=== PATIENT | female | born 1965 | race Caucasian/White ===

== ENCOUNTER 2018-04-13 08:25 | Observation (INO) | payer BC ==
--- NOTE | 2018-04-05 16:44 | HP ---
AMENDED REPORT NOW INCLUDES COSIGNER DESIGNATION - ESIGNED BEFORE ADJUSTMENTS CC: Dr. Arthur Aguilera; BRE Freitas in [place] * PREOPERATIVE HISTORY AND PHYSICAL: DATE OF PREOPERATIVE HISTORY AND PHYSICAL EXAMINATION: 04/04/18 This patient is scheduled for same-day surgery admission by Dr. Schultz on Monday , 04/13/18. ATTENDING SURGEON: Jazzy Schultz MD * (dictated by Giselle De NP). CHIEF COMPLAINT: Hyperparathyroidism. HISTORY OF PRESENT ILLNESS: The patient is a 53-year-old female recently evaluated by Dr. Schultz. The patient reports that in October, she began to feel very ill, complaining of neck pain and fatigue. In the process of the workup for these symptoms, she had a dose of antibiotic and subsequently developed hematoma in the anterior neck. Subsequent CAT scan identified mononucleosis and then later there was a question of mass and she had a cancer workup. In the process of the workup, she was found to have hypercalcemia. Parathyroid hormone was checked and she was found to be hyperparathyroid. Since then she has had localizing studies including nuclear medicine test and ultrasound that have identified left lower pole parathyroid adenoma. She was therefore referred by Dr. Aguilera for consideration of surgery. She notes that fatigue is an ongoing symptom as well as mood swings, constipation, memory problems and she has also been diagnosed with osteopenia on a DEXA scan. She denies history of radiation to the head and neck area. Her brother also had hyperparathyroidism and had surgery many years ago. She reports that there are no other known endocrinopathies in the family. Calcium level in January [address] Schultz examined the patient and discussed the findings with her and Dr. Schultz has recommended parathyroidectomy as the same day surgery procedure. Dr. Schultz discussed the nature of the surgical procedure, the rationale for the procedure, the relevant risks and benefits and today, I reviewed the typical postoperative care and recovery. The patient has had chance to ask questions and stated that she understands the information and is satisfied with the answers given to her questions. She will sign surgical consent on the day of surgery. PAST MEDICAL HISTORY: Significant for chronic neck pain and she has followed in the [facility] Clinic at [facility]; mononucleosis. PAST SURGICAL HISTORY: 1. Laparoscopic cholecystectomy [address] Mcdaniels. 2. Open appendectomy in 1986. MEDICATIONS: 1. Hydrocodone/acetaminophen 7.5/325 mg 1 tablet every 6 hours p.r.n. 2. Benadryl Allergy 25 mg p.o. p.r.n. ALLERGIES: PERCOCET and TRAMADOL have caused itching, but she can tolerate hydrocodone. FAMILY HISTORY: Brother had a parathyroidectomy; father at age 86 with the history of unspecified cancer, heart disease, and deep vein thrombosis. Mother alive and well at age 82. SOCIAL HISTORY: She is ; she is a former smoker who quit 25 years ago; she denies the use of alcohol or other substances. REVIEW OF SYSTEMS: Constitutional: No fever or chills, but she reports ongoing fatigue; her weight has been stable. Endocrine: As described in history of present illness. Respiratory: No dyspnea on exertion or chronic cough. Cardiovascular: No anginal chest pain or palpitations. Gastrointestinal : She reports constipation. No blood in the stool. No nausea or vomiting. Genitourinary: No dysuria. Musculoskeletal: Chronic neck pain. Neurologic: Mild memory problems. No blurred vision. No areas of focal weakness or numbness. General: No previous anesthesia complications. No history of deep vein thrombosis or pulmonary embolism. No history of blood transfusions. PHYSICAL EXAMINATION GENERAL SURVEY: The patient is a 53-year-old female, well developed, well nourished, in no acute distress. VITAL SIGNS: Height 64 inches, weight 170 pounds. Body mass index 29. Blood pressure 118/76, pulse 74 and regular, respiratory rate 18, temperature 98 tympanic. SKIN: Warm, dry, and intact. HEENT: Benign. NECK: Supple. No obvious swelling. The hematoma previously described is completely resolved. Palpation reveals no obvious masses in the region of the thyroid gland. BACK: No CVA tenderness. LUNGS: Breath sounds bilaterally clear and equal. HEART: Regular rate and rhythm. No murmurs or rubs appreciated. ABDOMEN: Active bowel sounds. Well healed surgical scars. Soft, nontender and nondistended. No obvious masses, organomegaly or evidence of ventral hernias. PELVIC: Deferred. RECTAL: Deferred. EXTREMITIES: Warmth without edema or skin ulceration. NEUROLOGIC: Alert and oriented x3. Steady gait. IMPRESSION: Hyperparathyroidism. PLAN: Same-day surgery admission to Dr. Schultz's service on 04/13/18 for parathyroidectomy. LE[place], STREET COMMISSIONER [id number]/[facility] #: [id number] [facility]
[~2018-04-13 08:25] MED LIST: Buffered Lidocaine 0.9% SYRIN* 5 ML/SYR SYRINGE INTRADERM ONE
[2018-04-13] MEDS ORDERED: fentaNYL* 50 MCG/ML 2 ML VIAL (100 MCG VIAL) ONE ×5 (09:25→14:44)
[2018-04-13] MEDS ORDERED: Midazolam* 1 MG/ML 2 ML VIAL (2 MG) ONE (09:25)
[2018-04-13] MEDS ORDERED: ceFAZolin 2 GM PREMIX (*) 2 GM/50 ML BAG IVPB ONE (09:38)
[2018-04-13] MEDS ORDERED: Heparin VIAL(*) 5000 UNITS/ML VIAL (FIVE THOUSAND) ONE (09:38)
[2018-04-13] MEDS ORDERED: Ropivacaine (OR use only) 2 MG/ML 10 ML ONE (10:29)
[2018-04-13] MEDS ORDERED: Rocuronium* 10 MG/ML VIAL ONE ×2 (10:37→11:09)
[2018-04-13] MEDS ORDERED: Propofol* 10 MG/ML 20 ML BTL IV PUSH ONE (11:18)
[2018-04-13] MEDS ORDERED: Famotidine IV* 10 MG/ML 2 ML (20 mg) ONE (11:18)
[2018-04-13] MEDS ORDERED: Dexamethasone IV* 4 MG/ML 1 ML (4 MG) ONE (11:18)
[2018-04-13] MEDS ORDERED: Ondansetron INJ* 2 MG/ML VIAL ONE (11:18)
[2018-04-13] MEDS ORDERED: PROCHLORPERAZINE INJ 5 MG/ML 2 ML VIAL IV PRN (12:13)
[2018-04-13] MEDS ORDERED: Acetaminophen TAB* 325 MG PO PRN (12:13)
[2018-04-13] MEDS ORDERED: Naloxone* 0.4 MG/ML 1 ML VIAL IV PRN (12:13)
[2018-04-13] MEDS ORDERED: HYDROcodone/ACETAMIN 5-325 MG* 1 TAB PO PRN (12:13)
[2018-04-13] MEDS ORDERED: Ondansetron INJ* 2 MG/ML VIAL IV PRN ×2 (12:13→13:54)
[2018-04-13] MEDS ORDERED: DiMENhydriNATE IV* 50 MG/ML VIAL IV PUSH PRN (12:13)
--- NOTE | 2018-04-13 13:50 | OP ---
<Parviz Estrada - Last Filed: 04/13/18 13:44> Operative Report - Blank - Operative Report Date of Operation: 04/13/18 Note: Brief Operative Note Preoperative Dx: Left lower parathyroid adenoma. Postoperative Dx: Same plus recurrent laryngeal nerve injury. Procedure: Left lower parathyroidectomy plus left recurrent laryngeal nerve repair. Anesthesia: GET. Surgeon: Antoine. Assist: BRE Yung. EBL: Less than 50 mL. Fluids: 700 LR. Specimen: Left lower parathyroid gland. Findings: Dictated. <Sánchez Yung - Last Filed: 04/13/18 17:28> Operative Report - Blank - Operative Report Note: Preoperative Dx: Hyperparathyroidism Postoperative Dx: same, plus Left recurrent laryngeal nerve injury
[2018-04-13] MEDS ORDERED: Acetaminophen ADULT LIQ* 650 MG/20.3 ML UDC PO PRN (13:51)
[2018-04-13] MEDS ORDERED: HYDROcodone/ACET. 7.5/325 LIQ* 15 ML UDC PO PRN (13:51)
[2018-04-13] MEDS: fentaNYL* 50 MCG/ML 2 ML VIAL (100 MCG VIAL) IV PRN ×3 (14:02→14:46)
[2018-04-13] MEDS ORDERED: HYDROcodone/ACET. 7.5/325 LIQ* 15 ML UDC ONE (14:33)
[2018-04-13] MEDS: HYDROcodone/ACET. 7.5/325 LIQ* 15 ML UDC PO PRN ×3 (14:36→22:39)
[2018-04-13] MEDS: Morphine INJ* 2 MG/ML 1 ML SYRINGE (TWO MG - NEW SYRINGE VERSION) IV PRN ×4 (16:40→23:19)
--- NOTE | 2018-04-13 22:38 | OP ---
CC: [facility]; Dr. Arthur Aguilera; Timothy DÍAZ, Edmundo Reeder OPERATIVE REPORT: DATE OF OPERATION: 04/13/18 DATE OF : 65 SURGEON: Jazzy Schultz MD GOLD NIB GRINDER: BRE Carlos PRE-OP DIAGNOSIS: Hyperparathyroidism. POST-OP DIAGNOSIS: Hyperparathyroidism. OPERATIVE PROCEDURE: Parathyroidectomy and repair of incidental nerve injury. INDICATIONS: Ms. Schofield is a 53-year-old woman, who was found to have hyperparathyroidism and prepa red for surgery. DESCRIPTION OF PROCEDURE: On the morning of surgery, she was brought to the operating room, placed o n the OR table in the supine position, and given general anesthesia. The neck was prepped and draped in the usual sterile fashion. After infiltrating with local anesthetic, an incision was made along the line that had been marked preoperatively. Subcutaneous tissue was then divided with electrocaute ry through the platysma muscle. Flaps were developed superiorly to the thyroid notch and inferiorly to the sternal notch. The strap muscles were then divided along the midline and retracted laterally over the left lobe of the thyroid gland where it was recognized that preoperative imaging had identif ied an abnormal parathyroid. A search was made for an abnormal parathyroid in the region of the lowe r pole where it had been identified and there was an abnormal appearing parathyroid gland that did no t quite appear large enough to qualify for the one that had been identified by imaging, so search was made for another one. What eventually turned out to be convolution of the left lobe of the thyroid gland was thought initially to be parathyroid and so some considerable dissection was carried out in this area. It was recognized that there was a fair amount of scar tissue around the thyroid or parat hyroid presumably due to previous hematoma in the area and this did effect the anatomy and appearance of the tissue in the area. Once it was recognized that this extra tissue was indeed thyroid tissue and it was retracted medially, a search was made for the recurrent laryngeal nerve. In the course of searching for the recurrent laryngeal nerve, it was recognized that the nerve had been divided, the 2 ends were visible and so the decision was made to repair the nerve. In the meantime, the original mass that appeared to be parathyroid had been taken out by primarily blunt dissection and handed off with another rapid PTH being sent after 10 minutes. The divided nerve was reapproximated using 6-0 P rolene stitches to attach the nerve sheath to the nerve sheath tissue in 3 points around the nerve an d then a piece of AxoGuard porcine nerve connector was placed around the repair to reinforce it. The n, a piece of Surgicel was placed in the bed of the parathyroid and closure was accomplished. This wa s done with 3-0 Vicryl to reapproximate the strap muscles, 4-0 Vicryl was used to reapproximate the p latysma muscle, and the skin was closed with 4-0 Prolene in a subcuticular fashion. Steri-Strips and a dry fluffy dressing were applied. All sponge and instrument counts were correct. The patient robbi rated the procedure well and was transferred to Recovery in a stable condition. [id number]/[facility] #: [id number]
[2018-04-14] MEDS: Morphine INJ* 2 MG/ML 1 ML SYRINGE (TWO MG - NEW SYRINGE VERSION) IV PRN (02:17)
[2018-04-14] MEDS: HYDROcodone/ACET. 7.5/325 LIQ* 15 ML UDC PO PRN ×2 (03:06→07:16)
[2018-04-14] MEDS ORDERED: Ibuprofen ADULT LIQ* 600 MG/30 ML UDC PO PRN (07:56)
--- NOTE | 2018-04-14 08:00 | PN ---
Progress Note - Progress Note Date of Service: 04/14/18 Note: Surgery Ms. Schofield reports she had a "miserable" night. She was uncomfortable with neck and incisional pain. She denies numbness or tingling around the lips or hand spasms. She has been trying to rest her voice. Vital Signs 04/13/18 04/13/18 04/13/18 09:22 13:39 13:40 Temperature 95.5 F 97.7 F Pulse Rate 61 71 77 Respiratory 16 16 Rate Blood Pressure 147/82 132/74 (mmHg) O2 Sat by Pulse 98 96 97 Oximetry 04/13/18 04/13/18 04/13/18 13:45 13:50 13:55 Temperature Pulse Rate 71 67 70 Respiratory 18 18 16 Rate Blood Pressure 126/68 108/72 127/82 (mmHg) O2 Sat by Pulse 97 96 96 Oximetry 04/13/18 04/13/18 04/13/18 13:56 14:00 14:02 Temperature Pulse Rate 69 Respiratory 16 16 17 Rate Blood Pressure 125/68 (mmHg) O2 Sat by Pulse 97 Oximetry 04/13/18 04/13/18 04/13/18 14:15 14:20 14:30 Temperature 98.4 F Pulse Rate 71 69 Respiratory 19 14 15 Rate Blood Pressure 130/71 117/71 (mmHg) O2 Sat by Pulse 97 98 Oximetry 04/13/18 04/13/18 04/13/18 14:36 14:45 14:46 Temperature Pulse Rate 74 Respiratory 16 21 17 Rate Blood Pressure 127/70 (mmHg) O2 Sat by Pulse 93 Oximetry 04/13/18 04/13/18 04/13/18 16:00 16:13 16:14 Temperature 97.3 F Pulse Rate 69 Respiratory 16 12 Rate Blood Pressure 124/74 (mmHg) O2 Sat by Pulse 99 99 Oximetry 04/13/18 04/13/18 04/13/18 16:32 16:40 17:20 Temperature 98.4 F 96.8 F Pulse Rate 70 65 Respiratory 16 16 14 Rate Blood Pressure 123/69 140/76 (mmHg) O2 Sat by Pulse 99 100 Oximetry 04/13/18 04/13/18 04/13/18 18:41 19:01 19:36 Temperature 97.7 F Pulse Rate 70 Respiratory 18 18 16 Rate Blood Pressure 142/74 (mmHg) O2 Sat by Pulse 99 Oximetry 04/13/18 04/13/18 04/13/18 19:38 20:00 20:33 Temperature 97.7 F Pulse Rate 70 Respiratory 16 17 17 Rate Blood Pressure 142/74 (mmHg) O2 Sat by Pulse 99 Oximetry 04/13/18 04/13/18 04/13/18 21:12 21:15 21:23 Temperature 97.1 F Pulse Rate 65 Respiratory 16 16 18 Rate Blood Pressure 134/76 (mmHg) O2 Sat by Pulse 96 Oximetry 04/13/18 04/13/18 04/13/18 22:17 22:39 23:19 Temperature Pulse Rate Respiratory 16 16 16 Rate Blood Pressure (mmHg) O2 Sat by Pulse Oximetry 04/13/18 04/14/18 04/14/18 23:29 00:25 00:55 Temperature 97.1 F Pulse Rate 65 Respiratory 16 16 16 Rate Blood Pressure 136/72 (mmHg) O2 Sat by Pulse 99 Oximetry 04/14/18 04/14/18 04/14/18 02:17 03:06 03:30 Temperature Pulse Rate Respiratory 17 16 16 Rate Blood Pressure (mmHg) O2 Sat by Pulse Oximetry 04/14/18 04/14/18 04/14/18 03:45 05:16 07:16 Temperature 97.4 F Pulse Rate 65 Respiratory 16 16 16 Rate Blood Pressure 129/72 (mmHg) O2 Sat by Pulse 96 Oximetry incision: clean and dry neg. [place] sign Intake & Output 04/13/18 04/14/18 04/14/18 22:59 06:59 14:59 Intake Total 520 60 Balance 520 60 Intake: Oral 520 60 Other: Estimated Void Large Medium # Bowel Movements 0 # Voids 3 1 Laboratory Results - last 24 hr 04/13/18 04/13/18 09:16 12:07 PTH Rapid 3.2 L PTH Intact 7.9 Calcium (PTH Intact) 10.4 H A/P: POD#1 s/p parathyroidectomy; pt. and family aware of nerve injury and repair. They are also aware of PTH responding to surgery. She is stable to go home. CLFoster
[2018-04-14 09:41] VITALS: BP 126/72
--- NOTE | 2018-04-14 15:29 | DS ---
CC: [facility]; Dr. Arthur Aguilera; Dr. Timothy Crowell * DISCHARGE SUMMARY: DATE OF ADMISSION: 04/13/18 DATE OF DISCHARGE: 04/14/18 ADMISSION DIAGNOSIS: Hyperparathyroidism. DISCHARGE DIAGNOSIS: Hyperparathyroidism. PROCEDURE DURING HOSPITALIZATION: Parathyroidectomy and repair of recurrent laryngeal nerve injury. Please see admission history and physical for details of findings at the time of admission. She underwent surgery, which is notable for the incidental laceration to the recurrent laryngeal nerve requiring repair and postoperatively , was admitted for observation due to this injury she postoperatively had neck pain, but no complications beyond the surgical one. She, the next morning, was considered stable for discharge and was discharged to home with instructions to followup as an outpatient. [id number]/[facility] #: [id number] JERE
== END 2018-04-14 11:03 | disposition home or self-care (01) ==
LOC: OR 08:25 → SSU 13:46
PROVIDERS: ADMIT Surgery; ATTEND Surgery
DX: E21.3 Hyperparathyroidism, unspecified (principal)
CPT/HCPCS: 36415; 83970; A9270-GY; G0378; J0690; J1100; J1644; J2250; J2270; J2405; J2704; J2795; J3010

== ENCOUNTER 2018-04-19 18:19 | Emergency (ER) | payer OTHER ==
[2018-04-19 19:15] LABS: ABS Basophils 0 10^3/ul (0-0.2); ABS Eosinophils 0.4 10^3/ul (0-0.6); ABS Lymphocytes 2.1 10^3/ul (1.0-4.8); ABS Monocytes 0.5 10^3/ul (0-0.8); ABS Neutrophils 3.5 10^3/ul (1.5-7.7); ABS Nucleated RBC 0 10^3/ul; Eosinophil % 6.7 % (0-6); Hematocrit 39 % (35-47); Hemoglobin 13.2 g/dl (12.0-16.0); Lymphocyte % 32.2 % (25-47); Mean Corpuscular HGB Conc 34 g/dl (31-36); Mean Corpuscular Hemoglobin 31 pg (27-31); Mean Corpuscular Volume 90 fL (80-97); Mean Platelet Volume 8.2 um3 (7.4-10.4); Nucleated Red Blood Cells % 0; Platelet Count 245 10^3/ul (150-450); Red Blood Count 4.29 10^6/ul (4.00-5.40); Red Cell Distribution Width 13 % (10.5-15); White Blood Count 6.7 10^3/ul (3.5-10.8)
--- NOTE | 2018-04-19 19:24 | ED ---
Neck Pain - HPI Summary HPI Summary: 53 y/o female presents to ED c/o constant swelling @ throat s/p parathyroid surgery onset 2 days ago worsening today. Sore throat rated 5/10. Pt's daughter ntoed that there may have been discharge from the incision. Associated sx: raspy voice, ecchymosis around site of surgery, intermittent SOB, rash. Sx 04/13. Sx not aggravated or alleviated by anything. - History of Current Complaint Chief Complaint: EDNeckComplaint Stated Complaint: POSSIBLE INFECTION IN THROAT Hx Obtained From: Patient Onset/Duration Of Injury/Symptoms: Days Timing: Constant Onset/Duration: Started days ago, Still Present Pain Intensity: 5 Pain Scale Used: 0-10 Numeric Aggravating Factors: Nothing Alleviating Factors: Nothing Associated Signs & Symptoms: Positive: Swelling, Bruising - Allergies/Home Medications Allergies/Adverse Reactions: Allergies Allergy/AdvReac Type Severity Reaction Status Date / Time No Known Allergies Allergy Verified 04/19/18 18:27 PMH/Surg Hx/FS Hx/Imm Hx Previously Healthy: No Cardiovascular History: Denies: Hx Pacemaker/ICD GI History: Reports: Hx Gall Bladder Disease, Hx Gastroesophageal Reflux Disease , Hx Irritable Bowel Musculoskeletal History: Reports: Hx Arthritis Denies: Hx Osteoporosis Sensory History: Reports: Hx Contacts or Glasses Denies: Hx Hearing Aid Opthamlomology History: Reports: Hx Contacts or Glasses Neurological History: Reports: Hx Migraine Psychiatric History: Denies: Hx Panic Disorder - Cancer History Hx Chemotherapy: No - Surgical History Surgery Procedure, Year, and Place: Lap cholecystectomy 03/03/14 [facility] [place]PPENDE[place]OM[place] 1986, TUBAL LIGATION 1996 Hx Anesthesia Reactions: No Infectious Disease History: No Infectious Disease History: Denies: Traveled Outside the [place] in Last 30 Days - Social History Alcohol Use: Rare Substance Use Type: Reports: None Smoking Status (MU): Never Smoked Tobacco Amount Used/How Often: social smoker Review of Systems Constitutional: Negative Eyes: Negative Positive: Sore Throat, Other - swelling, discharge, pruritis at site of incision Cardiovascular: Negative Positive: Shortness Of Breath Gastrointestinal: Negative Genitourinary: Negative Musculoskeletal: Negative Positive: Rash, Bruising Neurological: Negative Psychological: Normal All Other Systems Reviewed And Are Negative: No Physical Exam - Summary Physical Exam Summary: Appearance: Alert, conversive, nontoxic appearing Skin: Warm, dry, no mottling, no rashes, no contusions HEENT: EOMI, PERRL, moist mucous membranes. Area of swelling 6 cm in height 8 cm across slightly ttp, slightly erythematous, @ at anterior neck Neck: No masses on the neck, supple Respiratory: Clear to auscultation, breath sounds present, no rales, no rhonchi , no wheezes Cardiovascular: RRR, pulses are symmetrical in both lower and upper extremities Abdomen: Soft, non-tender Bowel Sounds: Present Musculoskeletal: No CVA tenderness, no obvious deformity, moving all extremities in a grossly normal manner Neurological: A&Ox3, CN II-XII Intact, moving all extremities symmetrically Psychiatric: Normal affect and mood Triage Information Reviewed: Yes Vital Signs On Initial Exam: Initial Vitals Temp Pulse Resp BP Pulse Ox 97.2 F 70 18 162/140 100 04/19/18 18:22 04/19/18 18:22 04/19/18 18:22 04/19/18 18:22 04/19/18 18:22 Vital Signs Reviewed: Yes Diagnostics - Vital Signs Vital Signs Temp Pulse Resp BP Pulse Ox 04/19/18 18:22 97.2 F 70 18 162/140 100 - Laboratory Lab Results: Lab Results 04/19/18 Range/Units 19:00 WBC 6.7 (3.5-10.8) 10^3/ul RBC 4.29 (4.00-5.40) 10^6/ul Hgb 13.2 (12.0-16.0) g/dl Hct 39 (35-47) % MCV 90 (80-97) fL MCH 31 (27-31) pg MCHC 34 (31-36) g/dl RDW 13 (10.5-15) % Plt Count 245 (150-450) 10^3/ul MPV 8.2 (7.4-10.4) um3 Neut % (Auto) 52.4 (38-83) % Lymph % (Auto) 32.2 (25-47) % [place] % (Auto) 8.0 H (0-7) % Eos % (Auto) 6.7 H (0-6) % Baso % (Auto) 0.7 (0-2) % Absolute Neuts (auto) 3.5 (1.5-7.7) 10^3/ul Absolute Lymphs (auto) 2.1 (1.0-4.8) 10^3/ul Absolute Monos (auto) 0.5 (0-0.8) 10^3/ul Absolute Eos (auto) 0.4 (0-0.6) 10^3/ul Absolute Basos (auto) 0 (0-0.2) 10^3/ul Absolute Nucleated RBC 0 10^3/ul Nucleated RBC % 0 Result Diagrams: 04/19/18 19:00 04/19/18 19:00 Lab Statement: Any lab studies that have been ordered have been reviewed, and results considered in the medical decision making process. - Radiology CXR Xray Interpretation: No Acute Changes - No PNA Radiology Interpretation Completed By: ED Physician - CT NECK CT CT Interpretation Completed By: Radiologist - Postsurgical hematoma within the surgical bed extending anteriorly into the anterior lower neck. Mild associated adjacent mass effect. Re-Evaluation - Re-Evaluation 1 Re-Evaluation Time: 21:27 Comment: Discuss CT results. Pt has an appointment with her surgeon, Dr. Schultz , tomorrow. Neck Course/Dx - Course Assessment/Plan: 53 y/o female presents to ED c/o constant swelling @ throat s/ p parathyroid surgery onset 2 days ago worsening today. CXR shows no PNA. NECK CT SHOWS Postsurgical hematoma within the surgical bed extending anteriorly into the anterior lower neck. Mild associated adjacent mass effect. Pt has an appt with surgeon Dr. Schultz tomorrow. Pt will be d/c home. - Diagnoses Provider Diagnoses: URI (upper respiratory infection), Hematoma Discharge - Sign-Out/Discharge Documenting (check all that apply): Patient Departure - Discharge Plan Condition: Stable Disposition: HOME Referrals: Timothy Crowell JR, PA [Physician Chemist [employer]] - - Attestation Statements Document Initiated by Scribe: Yes Documenting Scribe: Richmond Ledezma Provider For Whom Scribe is Documenting (Include Credential): Brianna Ruby MD Scribe Attestation: Richmond Urban, scribed for Brianna Ruby MD on 04/19/18 at 2130.
[2018-04-19 19:30] LABS: EGFR Non-African American 98.8 (>60)
--- OUTSIDE RECORDS SUMMARY | 2018-04-19 19:32 | XMS REPORT ---
:1965 External Reference #:[id number] Author Organization [employer] Address [address] [place] [address] Phone [phone] Care Team Providers Name Role Phone Timothy Crowell PA Primary Care Physician Unavailable Payers Type Date Identification Numbers Payment Provider Subscriber Commercial Policy Number: [id number] [facility] Yves Schofield Group Number: [id number] [address] PayID: [id number] [place] [address] Problems Description No Information Family History Date Family Member(s) Problem(s) Comments General Cancer General Diabetes Father Hypertension Father Heart Disease Father Clotting Disorder Mother Thyroid Disease Social History Type Date Description Comments Marital Status Lives With Spouse Occupation Currently Working [employer] ETOH Use Denies alcohol use Smoking Patient is a former smoker Recreational Drug Use Denies Drug Use Daily Caffeine Does Not Consume Caffeine Exercise Type/Frequency Exercises regularly Allergies, Adverse Reactions, Alerts Date Description Reaction Status Severity Comments 03/28/2018 Percocet active itching 03/28/2018 Tramadol active Medications Medication Date Status Form Strength Qnty SIG Indications Ordering Provider Hydrocodone-Mihir 0 Active Tablets 7.5-325mg take one Unknown taminophen 000 capsule/ta blet by mouth every 6 hours as needed for acute pain Benadryl 0 Active Tablets 25mg Unknown Allergy 000 Eszopiclone 0 Hx Tablets 3mg 1 tab by Unknown 000 mouth at bedtime as needed Vital Signs Date Vital Result Comment 03/28/2018 Height 64 inches 5'4" Weight 170.00 lb Heart Rate 74 /min BP Systolic 118 mmHg BP Diastolic 76 mmHg Respiratory Rate 18 /min Body Temperature 98.0 F BMI (Body Mass Index) 29.2 kg/m2 Results Description No Information Procedures Date CPT Code Description Status 02/22/2018 Bone Mineral Density Test Completed 03/03/2014 02046 Laparoscopy Cholecystectomy Completed Plan of Care Future Appointment(s):04/23/2018 1:00 pm - Jazzy Schultz MD at [facility]04/13/2018 8:00 am - Giselle Gary NP at [facility]04/13/2018 8:00 am - Jazzy Schultz MD at [facility]04/04/2018 1:00 pm - Giselle Gary NP at [facility]03/28/2018 - Jazzy Schultz MDE21.0 Primary hyperparathyroidismFollow up:for H&P and post op
--- OUTSIDE RECORDS SUMMARY | 2018-04-19 19:32 | XMS REPORT ---
:1965 External Reference #:[id number] Author Organization [employer] Address [address] [place] [address] Phone [phone] Care Team Providers Name Role Phone Timothy Crowell PA Primary Care Physician Unavailable Payers Type Date Identification Numbers Payment Provider Subscriber Commercial Policy Number: [id number] [facility] Yves Schofield Group Number: [id number] [address] PayID: [id number] [place] [address] Problems Description No Information Family History Date Family Member(s) Problem(s) Comments General Cancer General Diabetes Father Hypertension Father Heart Disease Father Clotting Disorder Mother Thyroid Disease Social History Type Date Description Comments Marital Status Lives With Spouse Occupation Currently Working [employer] ETOH Use Denies alcohol use Smoking Patient is a former smoker Recreational Drug Use Denies Drug Use Daily Caffeine Does Not Consume Caffeine Exercise Type/Frequency Exercises regularly Allergies, Adverse Reactions, Alerts Date Description Reaction Status Severity Comments 03/28/2018 Percocet active itching 03/28/2018 Tramadol active Medications Medication Date Status Form Strength Qnty SIG Indications Ordering Provider Hydrocodone Active Solution 7.5-325mg/ 240ml 10ml-15ml Giselle Bitartrate/Mihir 018 15ML by mouth B. taminophen every 4-6 [place], hours as ART DIRECTOR needed for pain Hydrocodone-Ac Active Tablets 7.5-325mg take one Unknown etaminophen 000 capsule/t ablet by mouth every 6 hours as needed for acute pain Benadryl Active Tablets 25mg Unknown Allergy 000 Eszopiclone Hx Tablets 3mg 1 tab by Unknown 000 mouth at bedtime as needed Vital Signs Date Vital Result Comment 04/04/2018 Heart Rate 68 /min BP Systolic 128 mmHg BP Diastolic 80 mmHg Respiratory Rate 16 /min Body Temperature 97.9 F 03/28/2018 Height 64 inches 5'4" Weight 170.00 lb Heart Rate 74 /min BP Systolic 118 mmHg BP Diastolic 76 mmHg Respiratory Rate 18 /min Body Temperature 98.0 F BMI (Body Mass Index) 29.2 kg/m2 Results Description No Information Procedures Date CPT Code Description Status 02/22/2018 Bone Mineral Density Test Completed 03/03/2014 25328 Laparoscopy Cholecystectomy Completed Plan of Care Future Appointment(s):04/13/2018 9:30 am - Giselle Gary NP at [facility]04/13/2018 9:30 am - Jazzy Schultz MD at [facility]04/23/2018 1:00 pm - Jazzy Schultz MD at [facility]04/04/2018 - Giselle Gary NPE21.0 Primary hyperparathyroidismFollow up:POSTOP 04/23/18Z01.818 Encounter for other preprocedural examination
--- OUTSIDE RECORDS SUMMARY | 2018-04-19 19:32 | XMS REPORT ---
:1965 External Reference #:[id number] Author Organization [employer] Address [address] [place] [address] Phone [phone] Care Team Providers Name Role Phone Timothy Crowell PA Primary Care Physician Unavailable Payers Type Date Identification Numbers Payment Provider Subscriber Commercial Policy Number: [id number] [facility] Yves Schofield Group Number: [id number] [address] PayID: [id number] [place] [address] Problems Description No Information Family History Date Family Member(s) Problem(s) Comments General Cancer General Diabetes Father Hypertension Father Heart Disease Father Clotting Disorder Mother Thyroid Disease Social History Type Date Description Comments Marital Status Lives With Spouse Occupation Currently Working [employer] ETOH Use Denies alcohol use [...] B. taminophen every 4-6 [place], hours as [employer] needed for pain Hydrocodone-Ac Active Tablets 7.5-325mg [...] BMI (Body Mass Index) 29.2 kg/m2 Results Test Date Test Result H/L Range Note CBC Auto Diff 04/04/2018 White Blood Count 6.5 10^3/uL 3.5-10.8 Red Blood Count 4.38 10^6/uL 4.00-5.40 Hemoglobin 13.4 g/dL 12.0-16.0 Hematocrit 40 % 35-47 Mean Corpuscular Volume 91 fL 80-97 Mean Corpuscular Hemoglobin 31 pg 27-31 Mean Corpuscular HGB Conc 34 g/dL 31-36 Red Cell Distribution Width 12 % 10.5-15 Platelet Count 243 10^3/uL 150-450 Mean Platelet Volume 8.5 um3 7.4-10.4 Abs Neutrophils 3.5 10^3/uL 1.5-7.7 Abs Lymphocytes 2.2 10^3/uL 1.0-4.8 Abs Monocytes 0.6 10^3/uL 0-0.8 Abs Eosinophils 0.2 10^3/uL 0-0.6 Abs Basophils 0.1 10^3/uL 0-0.2 Abs Nucleated RBC 0 10^3/uL Granulocyte % 54.5 % 38-83 Lymphocyte % 33.1 % 25-47 Monocyte % 8.9 % High 0-7 Eosinophil % 2.7 % 0-6 Basophil % 0.8 % 0-2 Nucleated Red Blood Cells % 0.2 Basic Metabolic Panel 04/04/2018 Sodium 139 mmol/L 135-145 Potassium 4.2 mmol/L 3.5-5.0 Chloride 106 mmol/L 101-111 Co2 Carbon Dioxide 29 mmol/L 22-32 Anion Gap 4 mmol/L 2-11 Glucose 93 mg/dL 70-100 Blood Urea Nitrogen 14 mg/dL 6-24 Creatinine 0.83 mg/dL 0.51-0.95 BUN/Creatinine Ratio 16.9 8-20 Calcium 10.7 mg/dL High 8.6-10.3 Egfr Non- 71.9 >60 Egfr 87.0 >60 1 1 Because ethnic data is not always readily available, this report includes an eGFR for both -Americans and non- Americans. The National Kidney Disease Education Program (NKDEP) does not endorse the use of the MDRD equation for patients that are not between the ages of 18 and 70, are , have extremes of body size, muscle mass, or nutritional status, or are non- or non-. According to the National Kidney Foundation, irrespective of diagnosis, the stage of the disease is based on the level of kidney function: Stage Description GFR(mL/min/1.73 m(2)) 1 Kidney damage with normal or decreased GFR 90 2 Kidney damage with mild decrease in GFR 60-89 3 Moderate decrease in GFR 30-59 4 Severe decrease in GFR 15-29 5 Kidney failure <15 (or dialysis) Procedures Date CPT Code Description Status 02/22/2018 Bone Mineral Density Test Completed 03/03/2014 60930 Laparoscopy Cholecystectomy Completed Plan of Care Future Appointment(s):04/13/2018 9:30 am - Giselle Gary NP at [facility]04/13/2018 9:30 am - Jazzy Schultz MD at [facility]04/23/2018 1:00 pm - Jazzy Schultz MD at [facility]04/04/2018 - Giselle Gary NPE21.0 Primary hyperparathyroidismFollow up:POSTOP 04/23/18Z01.818 Encounter for other preprocedural examination
[2018-04-19] MEDS ORDERED: predniSONE TAB* 20 MG PO ONE (19:33)
[2018-04-19] MEDS ORDERED: Albuterol/Ipratropium NEB.SOL* Albuterol 2.5 MG/Ipratropium 0.5 MG 3 ML INH ONE (19:33)
[2018-04-19] MEDS ORDERED: Iohexol 300* (CONTRAST) 10 ML SDV IV ONE (19:46)
[2018-04-19] MEDS ORDERED: NS 0.9% 1000 ML* 1,000 ML IV ONE (20:40)
--- NOTE | 2018-04-19 21:03 | RAD ---
EXAM: CT Neck With Intravenous Contrast CLINICAL HISTORY: 53 years old, female; Signs and symptoms; Mass, lump, or swelling in neck; Prior surgery; Surgery date: 3-7 days post-operative; Patient HX: Parathyroidectomy 04/13/18- vocal cords also clipped due to mass, HX of blood clot november 2017; Additional info: Neck mass, S/P parathyroidectomy 1 week ago TECHNIQUE: Axial computed tomography images of the neck with intravenous contrast. All CT scans at this facility use at least one of these dose optimization techniques: automated exposure control; mA and/or kV adjustment per patient size (includes targeted exams where dose is matched to clinical indication); or iterative reconstruction. Coronal and sagittal reformatted images were created and reviewed. CONTRAST: 50 mL of OMNIPAQUE administered intravenously. COMPARISON: CT - SOFT TISSUE NECK W/ CONTRAST 12/13/2017 11:13 AM FINDINGS: Oropharynx: Normal. No tonsillar enlargement. No peritonsillar fluid collections. Hypopharynx: Normal. No retropharyngeal collections. Larynx: Normal. Normal epiglottis. Trachea: Normal. Retropharyngeal space: Normal. Submandibular/parotid glands: Normal. Glands are normal in size. No mass. Thyroid: Patient post removal of the previously seen nodule posterior to the left thyroid lobe. High attenuating fluid is seen within the left visceral space which extends anteriorly along the resection tract into the anterior cervical space and subcutaneous fat. More focal rounded area of high attenuation within the surgical bed measures 1.7 x 1.5 cm (series 2, image 34). A few foci of gas are seen within the subcutaneous space overlying skin thickening. Mild associated rightward deviation of the larynx and upper trachea along with mild anterior deviation of the left thyroid lobe. Bones/joints: No acute fracture. No suspicious osseous lesions. Soft tissues: Normal. Vasculature: Mild stranding extending into the left carotid space. Vascular structures are otherwise widely patent. Lymph nodes: Normal. No lymphadenopathy. Lung apices: Normal as visualized. IMPRESSION: Postsurgical hematoma within the surgical bed extending anteriorly into the anterior lower neck. Mild associated adjacent mass effect.
[2018-04-19 21:43] VITALS: BP 139/75
--- NOTE | 2018-04-20 07:49 | RAD ---
INDICATION: Wheezing COMPARISON: None TECHNIQUE: An AP upright view is submitted. The image was taken at 1959 hours. FINDINGS: Bones/Soft Tissues: There are no acute bony findings. Cardiomediastinal: The cardiomediastinal silhouette is normal. Lungs: There are no infiltrates. Pleura: There are no pleural effusions. Other: None IMPRESSION: NO ACTIVE DISEASE. R0
== END 2018-04-19 21:41 | disposition home or self-care (01) ==
LOC: ED 18:19
DX: J06.9 Acute upper respiratory infection, unspecified (principal); J02.9 Acute pharyngitis, unspecified; R06.02 Shortness of breath; R21 Rash and other nonspecific skin eruption
CPT/HCPCS: 36415; 70491; 71045; 80053; 83605; 83735; 84443; 85025; 87040; 96374; 99282; A9270-GY; J7512; Q9967